=== PATIENT | female | born 1940 | race Caucasian/White ===

== ENCOUNTER 2025-02-15 08:04 | Observation (INO) ==
--- NOTE | 2025-01-31 13:48 | PAT Medication Instructions ---
Medication Instructions Date of Service January 31, 2025 Home Medications apixaban 5 mg tablet (Eliquis) 5 mg PO BID biotin 5,000 mcg disintegrating tablet 2,500 mcg PO DAILY cyanocobalamin (vitamin B-12) 5,000 mcg capsule 5,000 mcg PO QAM gabapentin 300 mg capsule 600 mg PO HS PRN neuropathy hydrochlorothiazide 25 mg tablet 25 mg PO QAM levothyroxine 75 mcg tablet (Synthroid) 75 mcg PO PM methylprednisolone 4 mg tablet 4 mg PO Q OTHER DAY metoprolol succinate 25 mg tablet,extended release 24 hr 25 mg PO QAM oxybutynin chloride 10 mg tablet,extended release 24 hr 10 mg PO QAM propafenone 225 mg tablet 225 mg PO TID vit C 250 mg-vit E 90 mg-zinc 40 mg-copper 1 ok-jwehmm-clldan capsule (PreserVision AREDS-2) 1 tab PO BID B.coagulan,subtilis 1 bill. cell-inulin 1 gram-vit C 15 mg chew tablet (Culturelle Probiotic-Prebiotic) 1 tab PO DAILY cholecalciferol (vitamin D3) 50 mcg (2,000 unit) tablet (Vitamin D3) 50 mcg PO DAILY cranberry 500 mg capsule 500 mg PO QAM nitrofurantoin macrocrystal 100 mg capsule 100 mg PO QAM Continue as directed nitrofurantoin macrocrystal 100 mg capsule 100 mg PO QAM methylprednisolone 4 mg tablet 4 mg PO Q OTHER DAY ASK your prescriber and surgeon apixaban 5 mg tablet (Eliquis) 5 mg PO BID STOP taking 2 weeks before surgery (or as soon as possible if surgery is within 2 weeks) biotin 5,000 mcg disintegrating tablet 2,500 mcg PO DAILY vit C 250 mg-vit E 90 mg-zinc 40 mg-copper 1 [id number] capsule (PreserVision AREDS-2) 1 tab PO BID DO NOT take the morning of surgery cyanocobalamin (vitamin B-12) 5,000 mcg capsule 5,000 mcg PO QAM hydrochlorothiazide 25 mg tablet 25 mg PO QAM oxybutynin chloride 10 mg tablet,extended release 24 hr 10 mg PO QAM B.coagulan,subtilis 1 bill. cell-inulin 1 gram-vit C 15 mg chew tablet (Culturelle Probiotic-Prebiotic) 1 tab PO DAILY cholecalciferol (vitamin D3) 50 mcg (2,000 unit) tablet (Vitamin D3) 50 mcg PO DAILY cranberry 500 mg capsule 500 mg PO QAM Take morning of surgery With a small sip of water, OTHERWISE NOTHING TO EAT OR DRINK AFTER MIDNIGHT: levothyroxine 75 mcg tablet (Synthroid) 75 mcg PO PM metoprolol succinate 25 mg tablet,extended release 24 hr 25 mg PO QAM propafenone 225 mg tablet 225 mg PO TID Take evening before surgery gabapentin 300 mg capsule 600 mg PO HS PRN neuropathy (if needed) levothyroxine 75 mcg tablet (Synthroid) 75 mcg PO PM propafenone 225 mg tablet 225 mg PO TID Other Notes If you have any questions please call us at [phone] or [phone] or [phone] or [phone]
--- NOTE | 2025-02-02 11:49 | Anesthesiology Consultation ---
Date of Service February 02, 2025 Assessment & Plan (1) Encounter for pre-operative examination: - Infectious disease screening: Per assessment on 02/02/25- No known recent infectious disease contacts or current infectious disease symptoms. - Outpatient joint assessment: Pt currently scheduled for inpatient pathway. If surgeon requests review for outpatient joint pathway, patient is not a recommended candidate for outpatient joint program from anesthesia standpoint based on available information. - Eliquis instructions per surgeon/prescriber - Hx PMR: Taking methylprednisolone 4mg every other day (chronic/long-term dose unchanged per patient) - Cardiology note (01/20/25): "Low to intermediate cardiac risk" - Cardiology visit (01/23/25): "She presents today for clearance for a right shoulder replacement.. she has done well since the last evaluation.. EKG today shows Sinus bradycardia.. P A-fib: symptoms well controlled.. Daytime somnolence and fatigue: lets get a sleep study [not completed yet].. Hypertension which is well controlled.. She is concerned to be a low to intermediate risk for right shoulder replacement.. low to intermediate risk for holding her Eliquis for 3 days prior to procedure.." Doxycycline rx provided for recent tick bite. - Pending: * Per PAT tech, patient unable to void at PAT visit and was provided with order; will take preop UA to "a [facility] lab" in near future. Awaiting surgeon-ordered preop UA ([facility] lab, date TBD). * Awaiting surgeon-ordered PCP preop evaluation (Dr. Marbella Vilchis/Erwin, appt 02/07). Chart Review Chart Review: Patient seen in Pre Admission Testing Teaching & Discussion Pre-Anesthesia Teaching/Discussion Notes: Instructed NPO after midnight before surgery,except medications with 15 cc of water. Medication instructions pr ovided according to the PAT guidelines. History Surgery Operation Date: 02/15/25 10:35 Proposed Procedures p Right Reversed Total Shoulder Arthroplasty - Gautam Lord MD Height/Weight Height: 5 ft Weight: 60.8 kg Allergies Allergy/AdvReac Type Severity Reaction Status Date / Time Iodinated Contrast Media Allergy Intermediate Itching/blood Verified 02/02/25 12:43 in urine latex Allergy Intermediate Rash Verified 01/31/25 08:52 Medications Home Medications Medication Instructions Recorded Confirmed Last Taken apixaban 5 mg tablet (Eliquis) 5 mg PO BID 10/23/23 01/31/25 Unknown biotin 5,000 mcg disintegrating 2,500 mcg PO DAILY 10/23/23 01/31/25 Unknown tablet cyanocobalamin (vitamin B-12) 5,000 mcg PO QAM 10/23/23 01/31/25 Unknown 5,000 mcg capsule gabapentin 300 mg capsule 600 mg PO HS PRN neuropathy 10/23/23 01/31/25 Unknown hydrochlorothiazide 25 mg tablet 25 mg PO QAM 10/23/23 01/31/25 Unknown levothyroxine 75 mcg tablet 75 mcg PO PM 10/23/23 01/31/25 Unknown (Synthroid) methylprednisolone 4 mg tablet 4 mg PO Q OTHER DAY 10/23/23 01/31/25 Unknown metoprolol succinate 25 mg 25 mg PO QAM 10/23/23 01/31/25 Unknown tablet,extended release 24 hr oxybutynin chloride 10 mg 10 mg PO QAM 10/23/23 01/31/25 Unknown tablet,extended release 24 hr propafenone 225 mg tablet 225 mg PO TID 10/23/23 01/31/25 Unknown vit C 250 mg-vit E 90 mg-zinc 40 1 tab PO BID 10/23/23 01/31/25 Unknown mg-copper 1 [id number]-arqpnx capsule (PreserVision AREDS-2) B.coagulan,subtilis 1 bill. 1 tab PO DAILY 01/31/25 01/31/25 Unknown cell-inulin 1 gram-vit C 15 mg chew tablet (Culturelle Probiotic-Prebiotic) cholecalciferol (vitamin D3) 50 50 mcg PO DAILY 01/31/25 01/31/25 Unknown mcg (2,000 unit) tablet (Vitamin D3) cranberry 500 mg capsule 500 mg PO QAM 01/31/25 01/31/25 Unknown nitrofurantoin macrocrystal 100 mg 100 mg PO QAM 01/31/25 01/31/25 Unknown capsule Past Medical History Medical History Actinic keratosis Atrial fibrillation Taking Eliquis Follows with Dr. Graham GERD (gastroesophageal reflux disease) Hiatal hernia History of COVID-19 03/2023 Hx of migraine headaches Hx of recurrent urinary tract infection Per patient, hx of recurrent UTIs over the past year Currently taking nitrofuratoin preventatively/jail given recurrent UTI hx per patient; denies current/recent UTI infection Hypertension Hypothyroidism Neuropathy Right foot Osteoarthritis Osteopenia Overactive bladder Polymyalgia Reason for methylprednisolone 4mg every other day SNHL (sensorineural hearing loss) Exercise / Class Metabolic Activity II 4-5 Yardwork/Stairs/Walk up hill (one FS: No CP, no SOB) Past Family History Family History Brother Colon cancer Past Surgical History Surgical History History of bladder surgery Lift History of cardiac cath ~2013 (Replaced by [facility])- no stents History of cataract surgery R/L History of colonoscopy History of esophagogastroduodenoscopy (EGD) History of hysterectomy History of lumbar fusion L4-5 History of postoperative nausea and vomiting History of repair of rotator cuff R/L History of tonsillectomy History of tooth extraction History of total knee replacement (2023) Right Hx of foot surgery Right x3 Past Anesthesia History No Hx of Anesthesia Complications and No Family Hx of Anesthesia Complications History of PONV No Hx of PONV and No Hx of Motion Sickness Social History Smoking Status: Never smoker Do You Dip or Chew Tobacco: No Hx Alcohol Use: Yes alcohol intake frequency: holidays/special occasions only Hx Substance Use: No substance use type: does not use Review of Systems Patient denies chest pain, shortness of breath, dyspnea on exertion, fever, chills, cough, wheezing. Physical Exam Vital Signs BP 141/72 P 67 TEMP 97.8 SP02 97%RA RESP 18 Physical Mildly decreased cervical extension range of motion. Full TMJ range of motion. TMD 3 finger breaths Mallampati Score III Dentition: upper/lower partials Lungs: clear throughout to auscultation Cardiac: regular rate and rhythm, no murmurs noted Spine: normal Carotid arteries: negative bruit Extremities: wearing compression stockings Lab Results Anesthesia Preop Results Results Anesthesia Widget: WBC 12.53 K/ul (4.8-10.8) H 02/02/25 Hgb 14.3 g/dl (12.0-16.0) 02/02/25 Hct 41.2 % (37.0-47.0) 02/02/25 Plt 207 K/uL (130-400) 02/02/25 Na 138 mmol/L (136-145) 02/02/25 K 3.8 mmol/L (3.5-5.1) 02/02/25 Cl 100 mmol/L (98-107) 02/02/25 CO2 30 mmol/L (21-32) 02/02/25 BUN 12 mg/dl (6-23) 02/02/25 Creat 0.55 mg/dl (0.6-1.2) L 02/02/25 Glucose Level 90 mg/dl (70-99(Fasting)) 02/02/25 PT 11.9 Seconds (9.0-12.0) 02/02/25 PTT 28 Seconds (21-31) 02/02/25 INR 1.1 (0.9-1.1) 02/02/25 Blood Type AB Positive 02/02/25 Antibody Screen NEGATIVE 02/02/25 Testing Laboratory Results Surgeon's office made aware of elevated WBC. Electrocardiogram Date: 01/23/25 SR (slow). 59bpm. ST elevation, consider acute ischemia. EKG done/reviewed at cardiology preop evaluation appointment. Chest X-Ray Date: 02/02/25 FINDINGS: Heart size and pulmonary vasculature are normal. Lungs are hyperexpanded. No consolidation or pleural effusion. There is mild scoliosis. IMPRESSION: No acute findings.
--- NOTE | 2025-02-13 15:31 | History & Physical Report ---
Date of Service February 13, 2025 Assessment & Plan (1) Rotator cuff tear arthropathy of right shoulder: Plan: Failed rotator cuff repair over time with decreasing function and increasing pain over time with rotator cuff arthropathy. [id number] in subacromial space now. Plan is to proceed with reverse total shoulder replacement of the right shoulder. (2) Failure of previous rotator cuff repair: History of Present Illness Chief Complaint: Chronic right shoulder pain and weakness Primary Care Provider: Ayaan Corado 84-year-old female with chronic right shoulder pain weakness. Patient denies headaches, sweats, fevers, chills, double vision, blurred vision, cough, sore throat, dysphagia, chest pain, sob, wheezing, n/v/d/c, numbness, tingling, fatigue, urinary symptoms, mood disorders. Allergies Allergy/AdvReac Type Severity Reaction Status Date / Time Iodinated Contrast Media Allergy Intermediate Itching/blood Verified 02/02/25 12:43 in urine latex Allergy Intermediate Rash Verified 01/31/25 08:52 Home Medications Medication Instructions Recorded Confirmed Type apixaban 5 mg tablet (Eliquis) 5 mg PO BID 10/23/23 01/31/25 History biotin 5,000 mcg disintegrating 2,500 mcg PO DAILY 10/23/23 01/31/25 History tablet cyanocobalamin (vitamin B-12) 5,000 mcg PO QAM 10/23/23 01/31/25 History 5,000 mcg capsule gabapentin 300 mg capsule 600 mg PO HS PRN neuropathy 10/23/23 01/31/25 History hydrochlorothiazide 25 mg tablet 25 mg PO QAM 10/23/23 01/31/25 History levothyroxine 75 mcg tablet 75 mcg PO PM 10/23/23 01/31/25 History (Synthroid) methylprednisolone 4 mg tablet 4 mg PO Q OTHER DAY 10/23/23 01/31/25 History metoprolol succinate 25 mg 25 mg PO QAM 10/23/23 01/31/25 History tablet,extended release 24 hr oxybutynin chloride 10 mg 10 mg PO QAM 10/23/23 01/31/25 History tablet,extended release 24 hr propafenone 225 mg tablet 225 mg PO TID 10/23/23 01/31/25 History vit C 250 mg-vit E 90 mg-zinc 40 1 tab PO BID 10/23/23 01/31/25 History mg-copper 1 [id number] capsule (PreserVision AREDS-2) B.coagulan,subtilis 1 bill. 1 tab PO DAILY 01/31/25 01/31/25 History cell-inulin 1 gram-vit C 15 mg chew tablet (Culturelle Probiotic-Prebiotic) cholecalciferol (vitamin D3) 50 50 mcg PO DAILY 01/31/25 01/31/25 History mcg (2,000 unit) tablet (Vitamin D3) cranberry 500 mg capsule 500 mg PO QAM 01/31/25 01/31/25 History nitrofurantoin macrocrystal 100 mg 100 mg PO QAM 01/31/25 01/31/25 History capsule Past Med/Surg History Problem List (Updated 02/13/25 @ 15:31 by Gautam Lord MD) Failure of previous rotator cuff repair Rotator cuff tear arthropathy of right shoulder Encounter for pre-operative examination Impacted cerumen, right ear Sensorineural hearing loss (SNHL), bilateral Medical History SNHL (sensorineural hearing loss) Actinic keratosis Osteopenia Polymyalgia Reason for methylprednisolone 4mg every other day Osteoarthritis Hiatal hernia Neuropathy Right foot GERD (gastroesophageal reflux disease) Hypothyroidism Hx of migraine headaches Hx of recurrent urinary tract infection Per patient, hx of recurrent UTIs over the past year Currently taking nitrofuratoin preventatively/long term given recurrent UTI hx per patient; denies current/recent UTI infection Overactive bladder Atrial fibrillation Taking Eliquis Follows with Dr. Graham Hypertension History of COVID-19 03/2023 Surgical History History of postoperative nausea and vomiting History of total knee replacement (2023) Right History of cardiac cath ~2013 ([facility] [place])- no stents History of repair of rotator cuff R/L History of lumbar fusion L4-5 Hx of foot surgery Right x3 History of bladder surgery Lift History of hysterectomy History of colonoscopy History of esophagogastroduodenoscopy (EGD) History of tonsillectomy History of tooth extraction History of cataract surgery R/L Family History Brother Colon cancer Social History Smoking Status: Never smoker Second Hand Exposure: No; Do You Dip or Chew Tobacco: No; Tobacco Cessation Education Requested by Patient: No Hx Alcohol Use: Yes Hx Substance Use: No Preferred Language: Czech Communication Ability: Effective 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 Beliefs That Will Affect Care: None Current Living Situation: Spouse Other Information That Helps Us Care for You: No Feels Safe at Home: Yes Safety Concerns: Feels Safe At This Time Assistive Devices: Denture - Upper, Denture - Lower, Glasses and Hearing Aid - Bilateral Assistive Devices Comment: prn glasses Review of Systems All systems reviewed & are unremarkable except as noted in HPI & below Physical Exam Constitutional: WD/WN, vitals as above Respiratory: normal respiratory effort; no respiratory distress Cardiovascular: Rate/Rhythm: regular rate and regular rhythm Musculoskeletal: Old healed surgical scars. Subacromial crepitation, anterolateral shoulder subacromial tenderness. Positive belly press test. Positive Kimble and Neer impingement signs. External rotation and isolated supraspinatus weakness. Painful arc of motion. Active flexion worse than passive with 130 degrees active and 180 degrees passive. Abduction active 150 and passive 180. External rotation 70, internal rotation 90. Neurovascular exam intact Skin: no rashes, warm and dry Neurologic: normal touch/pain/proprioception Psychiatric: A+Ox3, euthymic affect Results & Data Diagnostic Findings X-rays demonstrate [place] stage III rotator cuff arthropathy [id number] and acetabular rotation of the acromion process with a large spur extending into the coracoacromial ligament consistent with her chronic rotator cuff tear.
[~2025-02-15 08:04] MED LIST: BUPIVACAINE 0.5 % 5 MG/1 ML PF 10ML VIAL ONE
[2025-02-15] MEDS: LR 15ML/HR IV SCH (08:38)
[2025-02-15] MEDS: FAMOTIDINE 20 MG TAB PO SCH ×2 (08:38→08:56)
[2025-02-15] MEDS: ACETAMINOPHEN 500 MG TAB PO SCH ×3 (08:38→15:42)
[2025-02-15] MEDS: GABAPENTIN 300 MG CAP PO SCH ×2 (08:39→08:56)
[2025-02-15] MEDS: CeleBREX 200 MG CAP PO SCH ×2 (08:39→08:55)
[2025-02-15] MEDS: METOCLOPRAMIDE HCL 10 MG TABLET PO SCH ×2 (08:40→08:56)
[2025-02-15] MEDS: dexAMETHasone**PF** 10 MG/ML VIAL IV SCH ×2 (08:40→08:55)
[2025-02-15] MEDS: LR 60ML/HR IV SCH ×2 (08:46)
[2025-02-15] MEDS ORDERED: MIDAZOLAM HCL 1 MG/ML 2ML VIAL ONE (09:14)
[2025-02-15] MEDS ORDERED: ONDANSETRON INJ 2 MG/ML 2 ML VIAL ONE (09:14)
[2025-02-15] MEDS ORDERED: PROPOFOL IV EMULSION 10 MG/ML 20 ML VIAL IV ONE (09:14)
[2025-02-15] MEDS ORDERED: ROCURONIUM BROMIDE 10 MG/ML 5 ML VIAL IV ONE (09:14)
--- NOTE | 2025-02-15 10:25 | History & Physical Bridge Note ---
Date of Service February 15, 2025 History & Physical Bridge Note I have examined the patient, reviewed the History & Physical and in the interval since the performance of the History & Physical I have noted the following changes of clinical significance: no changes noted
[2025-02-15] MEDS: TRANEXAMIC ACID 1,000 MG **IV Pre-op IV SCH ×2 (10:46→11:08)
[2025-02-15] MEDS ORDERED: SUGAMMADEX SODIUM 200 MG/2 ML VIAL IV ONE (12:53)
--- NOTE | 2025-02-15 13:29 | Operative Report ---
Post Operative Report Pre & Post Diagnosis Operation Date: 02/15/25 10:00 Pre-Op Diagnosis: Rotator cuff tear arthropathy of right shoulder, failed rotator cuff repair, chronic proximal biceps rupture Post-Op Diagnosis: Rotator cuff tear arthropathy of right shoulder, failed rotator cuff repair, chronic proximal biceps rupture I identified the patient and participated in the time-out.: Yes Procedure Operation Date: 02/15/25 10:00 Actual Procedures p Right Reversed Total Shoulder Arthroplasty(Right) - Gautam Lord MD Surgeon Gautam Lord MD Almond Blancher Daren HENRY Estimated Blood Loss 50 Findings Consistent with Post-Op Diagnosis Specimens Humeral head Drains 2 Hemovac Anesthesia Type General Regional Complications none Disposition Disposition: Recovery Room Indications 84-year-old female with chronic right shoulder pain history of rotator cuff repair in the past now with failed rotator cuff repair and rotator cuff arthropathy and [place] 3 stage [id number] subacromial space. Failed conservative management including injections Description of Procedure The patient was taken to the operating room and anesthetized under regional block and general anesthetic. The patient was positioned on the operating table in a 30 beach chair position with a towel roll under the medial border of the right scapula. The arm was draped free to be able to manipulate the shoulder as needed. The right upper extremity was prepped and draped in usual sterile fashion. Exam demonstrated 140 degrees forward flexion abduction 80 degrees and external rotation 30 to 40 degrees with arm at side. Old scars from prior shoulder surgery. An anterior deltopectoral approach was performed. A longitudinal incision was made in the deltopectoral interval. The skin was incised sharply. Subcutaneous flaps were elevated off the fascia. The cephalic vein was dissected out and retracted lateral with the deltoid. The clavipectoral fascia was divided at the lateral margin of the conjoined tendon and extended up to the CA ligament. The following findings were noted: There was scarred bursa that was resected. This revealed a chronic rotator cuff tear upper subscapularis extending back to the infraspinatus some of which was still intact and teres minor was still intact. There was some old suture material and a Helicoil anchor superiorly in the greater tuberosity rotator cuff attachment site. Biceps tendon was absent. The upper centimeter of the pectoralis was released for inferior exposure. A self-retaining retractor was placed. The subscapularis muscle fibers were split longitudinally at the level of the circumflex vessels. The circumflex vessels were identified and tied off with silk ties and divided laterally. A Kitner elevator was used to free up the inferior fibers of the subscapularis off of the capsule. The axillary nerve was identified with a tug test and protected with a blunt Kaity retractor between the nerve and the capsule. The subscapularis tendon was then taken down off of the lesser tuberosity subperiosteally, a Vicryl traction suture was placed and a subperiosteal dissection was performed along the neck of the humerus as the arm was gradually externally rotated exposing the humeral head. I released some of the scarred coracohumeral ligament and rotator interval tissue to help mobilize the subscapularis for repair at the end of the procedure. The humeral head findings demonstrated grade 4 osteoarthritis superior humeral head where it articulated with the acromion process and moderately advanced osteoarthritis of the articular surface of the humerus otherwise.. retractors were readjusted and the inferior osteophytes were all resected using an artist chisel. A Valdez elevator was used to assist in releasing the capsule of the neck of the humerus. The capsule was divided with Suarez scissors down to the glenoid released off the anterior glenoid and the rotator interval was released to meet the capsular release and a 360 release of the subscapularis was accomplished. A Fukuda retractor was placed into the joint retracting the humeral head posterior. Glenoid findings demonstrated arthritic changes but still had articular cartilage on the glenoid. Large posterior superior glenoid osteophyte was noted and removed with an osteotome. The labrum was resected. an anterior-inferior and posterior inferior capsular release were performed with electrocautery and a Valdez elevator on bone with the axillary nerve protected inferiorly by the retractor. Attention was then taken to the humeral preparation. The cutting guide was placed into the humeral head. It was positioned at 20 of retroversion. Oscillating saw was used to resect the humeral head giving the cut above the level of the posterior rotator cuff insertion site. The humerus was then prepared for the stem. I used the ascend flex stem from [employer]. The sizing broaches were used followed by trial broaches up to a size 3B along which had the appropriate fit and fill. The appropriate sized cut protector was placed. The humerus was then retracted posterior to the glenoid. The glenoid was sized for a 25 mm standard post baseplate. The guide for the baseplate was positioned in a 10 inferior tilt and the central drill hole was made. The reamer for the 25 mm standard post baseplate was used. The central drill was widened for the peg. The 28 aequalis hydroxyapatite coated 25 mm standard post baseplate was impacted into position. The base plate was transfixed with superior and inferior locking screws and anterior and posterior compression screws with stable fixation. The fan reamer was used for the 36 millimeter glenoid sphere. After irrigation the 36 mm centered glenoid sphere was impacted onto the baseplate and the security screw was tightened. Attention was taken back to the humerus. The cut protector was removed and the posterior low offset humeral tray trial was assembled to the trial stem rotated appropriately to get bony coverage and then screwed in position. A trial reduction was performed. A +6/36 flex reversed trial insert demonstrated good stability and no shuck. The trials were removed. 2 drill holes are made into the harder bone in the bicipital groove area and 3 #5 FiberWire sutures were placed transosseously. The canal was irrigated with pul satile saline solution. The final component was assembled. The final component was ascend flex 3B longstem assemble 2+0 low offset tray with a +6/36 reversed polyethylene flex insert. This was then impacted into the humerus with a tight press-fit. It was reduced to the glenoid sphere. Stability was verified. Subscapularis was repaired with the #5 FiberWire sutures using Pritesh-Heath suture technique. Lateral row soft tissue repair was performed with #2 FiberWire [id number]-[id number] sutures. The pectoralis was repaired with #2 FiberWire mypjkv-ym-ikukk sutures . The arm was taken through a range of motion which demonstrated 130 degrees forward flexion 90 degrees abduction and 70 degrees external rotation with good stability and no tension on repair.. The implant was stable through the range of motion tested. The wound was copiously irrigated. 2 Hemovac drains were placed. The deltopectoral interval was closed with [id number] #1 Vicryl sutures. The subcutaneous tissues were closed with 2-0 Vicryl sutures. The skin was closed with surgical daphne. Silverlon sterile dressing was applied and a shoulder immobilizer. CRAL Zheng, my physician information services assistant acted as cutting table operator first throughout the procedure .He performed functions including patient positioning, arm positioning, prepping and draping, soft tissue retraction, instrument management, suture management and performed the subcutaneous and skin closure and will participate in the postoperative care of the patient. Im ordering collagen sheets as a primary dressing and bordered super absorbent for secondary dressings for the wound resulting from this surgery. Collagen is being utilized to encourage the growth of blood vessels and granulation tissue. The collagen will also speed up the wound healing process, increase skin tensile strength at the surgery site and lessen the chance of a wound dehiscence, help prevent infection, and reduce the appearance of scarring. The silicone secondary dressings will protect the wound and help keep it clean and minimize that chances for infection. I believe that this treatment protocol is medically necessary to help facilitate the best outcome possible for my patient. I attest to the content of the Intraoperative Record and any orders documented therein. Any exceptions are noted below.
--- NOTE | 2025-02-15 14:14 | XRay Report ---
XR shoulder RT min 2V routine CLINICAL HISTORY: Post shoulder surgery COMPARISON: None FINDINGS: Right shoulder prosthesis shows no hardware complication. There is expected soft tissue ga s. Skin daphne are present. Postoperative drain is present. IMPRESSION: Unremarkable postoperative exam. ACT 112: Negative or not required by law. Electronically signed by: Erick Hnana M.D. 02/15/2025 2:12 PM
[2025-02-15] MEDS ORDERED: KETOROLAC TROMETHAMINE 15 MG/ML VIAL IV PRN (14:36)
[2025-02-15] MEDS ORDERED: diphenhydrAMINE Capsule 25 MG CAP PO PRN (14:36)
[2025-02-15] MEDS ORDERED: NALOXONE HCL 0.4 MG/1 ML VIAL/CARP IV PRN (14:36)
[2025-02-15] MEDS ORDERED: ALUMINUM/MAGNESIUM SUSP 30 ML UDC PO PRN (14:36)
[2025-02-15] MEDS ORDERED: methylPREDNISolone 4 MG TAB PO SCH (14:36)
[2025-02-15] MEDS ORDERED: HYDROmorphone INJ 0.5 MG/0.5 ML SYR IV PRN (14:36)
[2025-02-15] MEDS ORDERED: MAGNESIUM HYDROXIDE SUSP 30 ML UDC PO PRN (14:36)
[2025-02-15] MEDS ORDERED: ONDANSETRON INJ 2 MG/ML 2 ML VIAL IV PRN (14:36)
[2025-02-15] MEDS ORDERED: METOCLOPRAMIDE HCL INJ 5 MG/ML 2 ML VIAL IV PRN (14:36)
[2025-02-15] MEDS: BUPIVACAINE LIPOSOME 1.3% 133 MG/10 ML VIAL ONE (15:06)
[2025-02-15] MEDS: SODIUM CHLORIDE 0.9% 1,000 ML IV SCH (15:42)
[2025-02-15 15:57] VITALS: RESP 16
[2025-02-15] MEDS: PROPAFENONE HCL 150 MG TABLET PO SCH (16:05)
--- NOTE | 2025-02-15 16:15 | Anesthesiology Progress Note ---
Date of Service February 15, 2025 Anesthesia Post Procedure Vital Signs Vital Signs: Temp Pulse Pulse Resp BP Pulse Ox O2 Del Method 02/15/25 15:55 36.6 C 81 16 126/63 97 Room Air 02/15/25 14:55 36.6 C 69 18 123/57 L 95 Room Air 02/15/25 14:45 Room Air 02/15/25 14:36 36.7 C 66 18 114/70 94 Room Air 02/15/25 14:25 66 18 117/72 94 Room Air 02/15/25 14:15 68 20 115/56 L 94 Room Air 02/15/25 14:05 36.4 C L 68 20 110/54 L 93 Room Air 02/15/25 13:55 65 18 120/59 L 97 Oxymask 02/15/25 13:45 67 18 116/60 100 Oxymask 02/15/25 13:38 36 C L 88 21 116/52 L 97 Oxymask 02/15/25 08:28 36.4 C L 63 18 129/63 95 Room Air O2 Flow Rate 02/15/25 15:55 02/15/25 14:55 02/15/25 14:45 02/15/25 14:36 02/15/25 14:25 02/15/25 14:15 02/15/25 14:05 02/15/25 13:55 2 02/15/25 13:45 4 02/15/25 13:38 6 02/15/25 08:28 Transfer of Care Handoff Completed per policy Notes Mental Status: alert / awake / arousable and participated in evaluation Patient Amnestic to Procedure: Yes Nausea / Vomiting: adequately controlled Pain: adequately controlled Airway Patency, RR, SpO2: stable & adequate BP & HR: stable & adequate Hydration State: stable & adequate Anesthetic Complications: no major complications apparent
--- NOTE | 2025-02-15 17:26 | Hospitalist Consultation ---
Date of Consultation February 15, 2025 Assessment & Plan (1) Rotator cuff tear arthropathy of right shoulder: (2) Polymyalgia: (3) Atrial fibrillation: (4) Hypothyroidism: Plan This is an 84 year old female with PMHx of PMR, A fib, HTN, hypothyroidism who presented to the ED on 02/15/2025 for an elective total shoulder repair with Dr. Lord. #Rotator cuff tear of right shoulder s/p right shoulder surgery with Dr. Lord 02/15 DVT prophylaxis, pain management, PT/OT, & diet per primary team #PMR On chronic steroids of Medrol 4mg every other day. - continue while inpatient BP normotensive currently but watch for hypotension. s/p IV dexamethasone prior to OR and dose set for 02/16 - should be well covered with stress dosing #A fib Rate controlled Continue Metoprolol and propafenone #Hypothyroidism continue Synthroid check TSH in AM #HTN - hold HCTZ post operatively #OAB - Macrobid/Oxybutynin DVT prophylaxis: per primary team Code: full Case discussed with Dr. Landeros at time of consultation. Supervising Physician Co-Signing Physician Notes During face to face encounter, I obtained a history and physical examination, discussed plan of care with patient and answered any questions. I discussed plan of care with TJ Bowden. I reviewed above note and agree with it except for the following: Patient is being consulted for medical management. Patient with a right rotator cuff tear. Patient will be placed on stress steroids due to being on chronic steroids for PMR. History of Present Illness Attending Physician: Gautam Lord MD History of Present Illness This is an 84 year old female with PMHx of PMR, A fib, HTN, hypothyroidism who presented to the ED on 02/15/2025 for an elective total shoulder repair with Dr. Lord. Guerline was seen & examined this evening. She reports she is feeling fine from her surgery. her dinner went well. she has urinated since her surgery & passed gas. She denied any CP or SOB. She denies any abdominal pain, nausea, or vomiting. She reports she had a heart cath years ago when she was diagnosed with a fib but denies any additional issues at that time. She reports she is compliant with her medication. SHe is on chronic steroids for hx of PMR. SHe reports her plan is to go home tomorrow. She reports she is planning to do outpatient PT but was considering home therapy. Allergies Allergy/AdvReac Type Severity Reaction Status Date / Time Iodinated Contrast Media Allergy Intermediate Itching/blood Verified 02/15/25 08:31 in urine latex Allergy Intermediate Rash Verified 02/15/25 08:31 Home Medications Medication Instructions Recorded Confirmed Type apixaban 5 mg tablet (Eliquis) 5 mg PO BID 10/23/23 02/15/25 History biotin 5,000 mcg disintegrating 2,500 mcg PO DAILY 10/23/23 02/15/25 History tablet cyanocobalamin (vitamin B-12) 5,000 mcg PO QAM 10/23/23 02/15/25 History 5,000 mcg capsule gabapentin 300 mg capsule 600 mg PO HS PRN neuropathy 10/23/23 02/15/25 History hydrochlorothiazide 25 mg tablet 25 mg PO QAM 10/23/23 02/15/25 History levothyroxine 75 mcg tablet 75 mcg PO PM 10/23/23 02/15/25 History (Synthroid) methylprednisolone 4 mg tablet 4 mg PO Q OTHER DAY 10/23/23 02/15/25 History (Medrol) metoprolol succinate 25 mg 25 mg PO QAM 10/23/23 02/15/25 History tablet,extended release 24 hr oxybutynin chloride 10 mg 10 mg PO QAM 10/23/23 02/15/25 History tablet,extended release 24 hr propafenone 225 mg tablet 225 mg PO TID 10/23/23 02/15/25 History vit C 250 mg-vit E 90 mg-zinc 40 1 tab PO BID 10/23/23 02/15/25 History mg-copper 1 [id number] capsule (PreserVision AREDS-2) B.coagulan,subtilis 1 bill. 1 tab PO DAILY 01/31/25 02/15/25 History cell-inulin 1 gram-vit C 15 mg chew tablet (Culturelle Probiotic-Prebiotic) cholecalciferol (vitamin D3) 50 50 mcg PO DAILY 01/31/25 02/15/25 History mcg (2,000 unit) tablet (Vitamin D3) cranberry 500 mg capsule 500 mg PO QAM 01/31/25 02/15/25 History nitrofurantoin macrocrystal 100 mg 100 mg PO QAM 01/31/25 02/15/25 History capsule acetaminophen 500 mg tablet 1,000 mg (2 x 500 mg) PO Q8H #90 02/15/25 Rx (Tylenol Extra Strength) tabs cefadroxil 500 mg capsule 500 mg PO Q12H #28 caps 02/15/25 Rx oxycodone 5 mg tablet 5 mg PO Q4H PRN pain #30 tabs 02/15/25 Rx Patient History Medical History SNHL (sensorineural hearing loss) Actinic keratosis Osteopenia Polymyalgia Reason for methylprednisolone 4mg every other day Osteoarthritis Hiatal hernia Neuropathy Right foot GERD (gastroesophageal reflux disease) Hypothyroidism Hx of migraine headaches Hx of recurrent urinary tract infection Per patient, hx of recurrent UTIs over the past year Currently taking nitrofuratoin preventatively/jail given recurrent UTI hx per patient; denies current/recent UTI infection Overactive bladder Atrial fibrillation Taking Eliquis Follows with Dr. Graham Hypertension History of COVID-19 03/2023 Surgical History History of postoperative nausea and vomiting History of total knee replacement (2023) Right History of cardiac cath ~2013 ([facility])- no stents History of repair of rotator cuff R/L History of lumbar fusion L4-5 Hx of foot surgery Right x3 History of bladder surgery Lift History of hysterectomy History of colonoscopy History of esophagogastroduodenoscopy (EGD) History of tonsillectomy History of tooth extraction History of cataract surgery R/L Family History Brother Colon cancer Social History Smoking Status: Never smoker Second Hand Exposure: No; Do You Dip or Chew Tobacco: No; Tobacco Cessation Education Requested by Patient: No Hx Alcohol Use: Yes Hx Substance Use: No Preferred Language: Greek Communication Ability: [employer] Salesperson Required: No Beliefs That Will Affect Care: None Current Living Situation: Spouse Other Information That Helps Us Care for You: No Feels Safe at Home: Yes Safety Concerns: Feels Safe At This Time Assistive Devices: Cane and Walker Assistive Devices Comment: prn glasses Physical Exam Physical Exam: General: NAD, VS: BP 127/63; P70; R16; T37C Resp: normal respiratory effort, lungs clear to auscultation CV: RRR, no murmur Extremities: no edema; right shoulder sling in place. Neuro: A&O x3 Skin: intact, no lesions noted Results & Data Results & Data Vital Signs (Past 12 Hours) Vital Signs Temp Pulse Pulse Resp BP Pulse Ox O2 Del Method 02/15/25 16:20 37.0 C 70 16 127/63 97 Room Air 02/15/25 15:55 36.6 C 81 16 126/63 97 Room Air 02/15/25 14:55 36.6 C 69 18 123/57 L 95 Room Air 02/15/25 14:45 Room Air 02/15/25 14:36 36.7 C 66 18 114/70 94 Room Air 02/15/25 14:25 66 18 117/72 94 Room Air 02/15/25 14:15 68 20 115/56 L 94 Room Air 02/15/25 14:05 36.4 C L 68 20 110/54 L 93 Room Air 02/15/25 13:55 65 18 120/59 L 97 Oxymask 02/15/25 13:45 67 18 116/60 100 Oxymask 02/15/25 13:38 36 C L 88 21 116/52 L 97 Oxymask 02/15/25 08:28 36.4 C L 63 18 129/63 95 Room Air O2 Flow Rate 02/15/25 16:20 02/15/25 15:55 02/15/25 14:55 02/15/25 14:45 02/15/25 14:36 02/15/25 14:25 02/15/25 14:15 02/15/25 14:05 02/15/25 13:55 2 02/15/25 13:45 4 02/15/25 13:38 6 02/15/25 08:28 PG Care Time/CCT Total # of Minutes Spent Total Time Spent with Patient: Total time spent is greater than 50% in coordination of care (as documented) at patient's floor/unit and/or counseling patient: Coding Level of Care Code 48087 IN/OBS CONSULT LVL 3,45M Diagnoses Rotator cuff tear arthropathy of right shoulder M75.101; M12.811 Polymyalgia M35.3 Atrial fibrillation I48.91 Hypothyroidism E03.9
[2025-02-15] MEDS: TRANEXAMIC ACID / 0.7% NACL 1,000 MG/100 ML BAG IV SCH (19:42)
[2025-02-15] MEDS ORDERED: GABAPENTIN 300 MG CAP PO PRN (21:00)
[2025-02-15] MEDS ORDERED: CEROVITE ADV FORMULA TAB PO SCH (21:00)
[2025-02-15] MEDS: LEVOTHYROXINE SODIUM 75 MCG TABLET PO SCH (21:03)
[2025-02-15] MEDS: DOCUSATE SODIUM 100 MG CAP PO SCH (21:03)
[2025-02-15] MEDS: SENNA 8.6 MG TAB PO SCH (21:03)
[2025-02-15] MEDS: CEROVITE ADV FORMULA TAB PO SCH (21:03)
[2025-02-16 03:59] VITALS: O2SAT 95
[2025-02-16 06:35] LABS: Hematocrit (blood only) 32.1 % (37.0-47.0); Hemoglobin 10.4 g/dl (12.0-16.0); Immature Granulocytes # (auto) 0.05 K/uL (0.01-0.20); Immature Granulocytes % (auto) 0.4 %; Mean Corpuscular Hemoglobin 30.2 pg (25.0-34.0); Mean Corpuscular Volume 93.3 fL (80.0-100.0); Platelet Count 173 K/uL (130-400); RDW Standard Deviation 47.3 fL (36.4-46.3); Red Blood Count 3.44 M/uL (4.20-5.40); White Blood Count 11.41 K/ul (4.8-10.8)
[2025-02-16 06:49] LABS: Anion Gap 7.0 (3-11); Blood Urea Nitrogen 12.0 mg/dl (6-23); Calcium 8.5 mg/dl (8.6-10.3); Carbon Dioxide 24.0 mmol/L (21-32); Chloride 109.0 mmol/L (98-107); Creatinine Clr Calc Pharmacy 53.0 ml/min; Glucose 137.0 mg/dl (70-99(Fasting)); Potassium 4.2 mmol/L (3.5-5.1); Sodium 140.0 mmol/L (136-145)
[2025-02-16 07:04] LABS: Thyroid Stimulating Hormone 0.785 uIu/ml (0.300-4.500)
[2025-02-16 07:44] VITALS: BP 134/61; TEMP 97.5
--- NOTE | 2025-02-16 07:50 | Orthopedic Progress Note ---
Date of Service February 16, 2025 Assessment & Plan (1) Rotator cuff tear arthropathy of right shoulder: Plan: Postop day 1 reverse shoulder placement. Patient stable for discharge. She can start physical therapy on Thursday. Hemovac drain can be discontinued prior to discharge. Instructed in precautions post reverse shoulder replacement. Failed rotator cuff repair over time with decreasing function and increasing pain over time with rotator cuff arthropathy. [id number] in subacromial space now. Plan is to proceed with reverse total shoulder replacement of the right shoulder. (2) Failure of previous rotator cuff repair: Admission and Anticipated Discharge Date Admission Date: February 15, 2025 Subjective Still under effects of nerve block some return of motor function to her hand with flexion. No pain patient feels well Review of Systems Review of Systems: No chest pain shortness of breath feels well Physical Exam Musculoskeletal: Dressing dry and intact still has some motor weakness due to nerve block but can flex finger and thumb and make a fist. Circulation normal. Results & Data Vital Signs (Past 12 Hours) Vital Signs Temp Pulse Pulse Resp BP Pulse Ox O2 Del Method 02/16/25 07:00 36.4 C L 70 16 134/61 95 Room Air 02/16/25 03:59 36.5 C 72 16 115/64 95 Room Air 02/15/25 22:47 36.3 C L 70 16 108/61 93 Room Air 02/15/25 21:00 Room Air 02/15/25 20:53 36.3 C L 68 16 124/64 94 Room Air Diagnostic Findings X-rays demonstrate well aligned reverse total shoulder replacement right shoulder
[2025-02-16] MEDS: CHOLECALCIFEROL 25 MCG (1000 UNITS) TAB PO SCH (08:13)
[2025-02-16] MEDS: CYANOCOBALAMIN (B-12) 2,500 MCG TABLET PO SCH (08:13)
[2025-02-16] MEDS: dexAMETHasone 10 MG in SYRINGE 0 ML IV SCH (08:13)
[2025-02-16] MEDS: OXYBUTYNIN CHLORIDE XL 5 MG TABCR PO SCH (08:14)
[2025-02-16] MEDS: NITROFURANTOIN MONOHYDRATE 100 MG CAP PO SCH (08:16)
[2025-02-16] MEDS: METOPROLOL SUCC 25MG EXT REL TAB PO SCH (08:16)
[2025-02-16] MEDS: hydroCHLOROthiazide 25 MG TAB PO SCH (08:16)
[2025-02-16] MEDS ORDERED: NON-FORMULARY MEDICATION (Biotin 5,000 mcg Tablet,Disintegrating) PO SCH (09:00)
[2025-02-16] MEDS ORDERED: [UNRECOGNIZED DRUG - OTHER] PO SCH (09:00)
[2025-02-16] MEDS ORDERED: MULTIVITAMIN TAB PO SCH (09:00)
[2025-02-16] MEDS ORDERED: NON-FORMULARY MEDICATION (Cranberry 500 mg Capsule) PO SCH (09:00)
[2025-02-16 11:10] VITALS: PULSE 72
[2025-02-16] MEDS ORDERED: APIXABAN 5 MG TABLET PO SCH (21:00)
[2025-02-17] MEDS ORDERED: methylPREDNISolone 4 MG TAB PO SCH (09:00)
== END 2025-02-16 12:57 | disposition home or self-care (01) ==
LOC: 3E 08:04 → ASU 08:04
DX: Z79.01 Long term (current) use of anticoagulants; I48.91 Unspecified atrial fibrillation; Z79.890 Hormone replacement therapy; Z79.899 Other long term (current) drug therapy; E03.9 Hypothyroidism, unspecified; I10 Essential (primary) hypertension; M75.101 Unspecified rotator cuff tear or rupture of right shoulder, not specified as traumatic; M35.3 Polymyalgia rheumatica; Z91.041 Radiographic dye allergy status; Z91.040 Latex allergy status; K21.9 Gastro-esophageal reflux disease without esophagitis